=== PATIENT | male | born 1940 | race Caucasian/White ===

== ENCOUNTER 2018-05-18 08:35 | Day surgery (SDC) | payer OTHER ==
[2018-05-14 10:05] LABS: Absolute Lymphocytes (CBC) 1.6 K/uL (0.7-4.9); Absolute Monocytes 0.5 K/uL (0.1-1.3); Absolute Neutrophil 3.1 K/uL (1.8-8.0); Basophils % 0.9 % (0-1.3); Eosinophils % 3.9 % (0-4.4); Hematocrit 39.6 % (39.6-49.0); Lymphocytes % 29.5 % (15.3-44.8); MCV 89.2 fL (80-100); Monocytes % 9.3 % (3.3-12.3); RBC Red Blood Cell Count 4.44 M/uL (4.33-5.43)
[2018-05-14 10:08] LABS: Urine Appearance CLEAR; Urine Bilirubin NEGATIVE (NEG); Urine Blood NEGATIVE (NEG); Urine Color YELLOW; Urine Glucose NEGATIVE (NEG); Urine Protein NEGATIVE (NEG); Urine Urobilinogen 0.2 mg/dL (0.2-1.0)
[2018-05-14 10:17] LABS: Urine Microscopic Reflex NO UMIC
[2018-05-14 10:22] LABS: Protime INR 1.11
[2018-05-14 10:23] LABS: Potassium 4.1 mmol/L (3.5-5.1)
--- NOTE | 2018-05-14 11:05 | RAD REPORT ---
EXAM DESCRIPTION: RAD - Chest Pa And Lat (2 Views) - 05/14/2018 9:56 am CLINICAL HISTORY: Z01.818 Chest pain. COMPARISON: No comparisons FINDINGS: The lungs are clear. The heart is mildly prominent size. No displaced fractures. IMPRESSION: No acute or concerning finding suspected.
--- NOTE | 2018-05-15 10:30 | EKG ---
Test Date: 2018-05-14 Test Time: 09:59:42 [facility] Owner: GIOVANNI MEASUREMENT RESULTS: Intervals: Rate: 54 WA: 214 QRSD: 78 QT: 422 QTc: 400 [place]: P: 50 WA: 214 QRS: 52 T: 59 INTERPRETIVE STATEMENTS: Sinus bradycardia with 1st degree AV block Otherwise normal ECG No previous ECG available for comparison Electronically Signed On 05-15-18 10:27:33 CDT by Thad Macias
--- OUTSIDE RECORDS SUMMARY | 2018-05-18 08:40 | XMS REPORT ---
:1940 Author Organization [facility] Address [address] [place] [address] Care Team Providers Name Role Phone VICKIE OLMSTEAD Primary Care Provider Unavailable VICKIE OLMSTEAD Unavailable Unavailable Problems This patient has no known problems. Allergies, Adverse Reactions, Alerts This patient has no known allergies or adverse reactions. Medications This patient has no known medications. Results Test Description Test Time Test Comments Text Results Atomic Results Result Comments Lipid Profile 2017-08-10 22:23:00 Test Item Value Reference Range Comments Cholesterol (test code=CHOL) 128 mg/dL 0-200 Triglycerides (test code=TRIG) 194 mg/dL 9-200 HDL (test code=HDL) 33 mg/dL 40-60 Chol/HDL (test code=CHOLPHDL) 3.9 Ratio 0.0-5.0 LDL, Calculated (test 56 0-130 (NOTE)RISK OF HEART DISEASEPublished code=LDLC) by [place] Heart AssociationAnalyte Optimal Boderline Increased RiskCHOL <200 200-239 >240TRIG <150 150-199 >200HDL Male: >60 <40HDL Female: >60 <50LDL <100 130-159 >160LDL NEAR OPTIMAL IS 100-129 VLDL (test code=VLDL) 39 mg/dL 5-40 LDL/HDL (test code=LDLPHDL) 2 POC Glucose, [id number] 06:58:00 Test Item Value Reference Range Comments POC Glucose (test 155 mg/dL 70-115 Notify RN or MDIf you consider code=POCGLUC) your patient critically ill, the Mili Accu-Chek InformII metershould not be used for Glucose determinations.Draw a venous Glucose and send to the Main Lab for Analysis.
[2018-05-18] MEDS ORDERED: GENTAMICIN 100 MG/100 ML BAG 100 MG/100 ML BAG IV ONE (09:29)
[2018-05-18] MEDS ORDERED: NA CHLORIDE 0.9% 1,000 ML ONE (09:29)
[2018-05-18] MEDS ORDERED: LIDOCAINE 1% MPF 5 ML VIAL ONE (09:34)
[2018-05-18] MEDS ORDERED: PROPOFOL 200 MG/20 ML VIAL IV ONE (09:34)
[2018-05-18] MEDS ORDERED: FENTANYL CITR 100 MCG/2 ML ONE (09:34)
[2018-05-18] MEDS ORDERED: EPHEDRINE SULF 50 MG/ML SYR ONE (10:39)
[2018-05-18] MEDS ORDERED: NS 0.9% VIAL 10 ML ONE ×2 (10:40→10:56)
[2018-05-18] MEDS ORDERED: ONDANSETRON HCL 40 MG/20 ML VIAL ONE (10:43)
[2018-05-18] MEDS ORDERED: GLYCOPYRROLATE 0.2 MG/ML SYR ONE (10:46)
[2018-05-18] MEDS ORDERED: Phenylephrine HCl 10 MG/ML 1 ML VIAL ONE (10:55)
== END 2018-05-18 13:16 | disposition home or self-care (01) ==
LOC: OR 08:35
PROVIDERS: ATTEND Urology
PROC: 0VT08ZZ Resection of Prostate, Via Natural or Artificial Opening Endoscopic (ICD-10-PCS; principal; 2018-05-18 10:00)
DX: N40.1 Benign prostatic hyperplasia with lower urinary tract symptoms (principal); R33.9 Retention of urine, unspecified; I25.10 Atherosclerotic heart disease of native coronary artery without angina pectoris; Z95.5 Presence of coronary angioplasty implant and graft; E11.9 Type 2 diabetes mellitus without complications; I10 Essential (primary) hypertension; E78.00 Pure hypercholesterolemia, unspecified; E78.5 Hyperlipidemia, unspecified; Z87.891 Personal history of nicotine dependence; Z79.84 Long term (current) use of oral hypoglycemic drugs; R39.12 Poor urinary stream
CPT/HCPCS: 36415; 52601; 71046; 80048; 81003; 82962 ×2; 85025; 85610; 85730; 87086; 87088; 88305; 93005; J1580; J2370; J2405; J3010; J7030